=== PATIENT | male | born 1970 | race Caucasian/White ===

== ENCOUNTER → 2020-10-02 19:19 | Outpatient (ROUT) | payer OTHER, SELFPAY ==
[2020-10-02 20:02] LABS: Prostate Specific Antigen Scrn 2.37 ng/mL (0.1-4.0)
== END ==
PROVIDERS: Visit Provider Internal Medicine
DX: Z12.5 Encounter for screening for malignant neoplasm of prostate (principal)
CPT/HCPCS: G0103

== ENCOUNTER → 2021-11-12 11:52 | Outpatient (CLI) | payer OTHER, SELFPAY ==
--- NOTE | 2021-11-12 | DI.MRI.S_ITS ---
PROCEDURE: MR HEAD/BRAIN WO/W CON INDICATIONS: dizziness and giddiness TECHNIQUE: Noncontrast axial T1 spin echo, axial T2 fast spin echo, sagittal and axial FLAIR, coronal T2 fast spin echo, axial gradient echo, axial diffusion and ADC through the brain. After the administration of contrast, axial and coronal 3D VIBE or T1 spin echo with fat saturation through the brain. COMPARISON: None. FINDINGS: Image quality: Excellent. CSF Spaces: Basal cisterns are patent. No extra-axial fluid collections. Ventricles are normal in size and shape. Brain: Incidental small left frontal developmental venous anomaly. No adjacent brain parenchymal signal abnormality. No midline shift. No intracranial bleeds or masses. No abnormal intracranial enhancement. The brainstem appears normal. Diffusion-weighted images demonstrate no acute ischemic insults. No chronic ischemic insults. Normal intravascular flow voids are present. Skull and face: Calvarial marrow is normal in signal. Orbits appear normal. Sinuses: Sinuses and mastoids appear clear. IMPRESSION: Incidental left frontal DVA is of unlikely clinical significance. Otherwise unremarkable MRI of the brain. Dictated by: Mark Montana M.D. on 11/12/2021 at 12:43 Approved by: Mark Montana M.D. on 11/12/2021 at 12:45
== END ==
PROVIDERS: Referring Provider Psychiatry & Neurology Neurology; Visit Provider Psychiatry & Neurology Neurology
DX: R42 Dizziness and giddiness (principal)
CPT/HCPCS: 70553

== ENCOUNTER → 2023-05-06 09:19 | Outpatient (CLI) | payer OTHER, SELFPAY ==
[2023-05-06 11:16] LABS: Add Manual Diff / Slide Review NO; Basophils Absolute Auto 0 /uL (0-100); Basophils Percent Auto 0.7 % (0-2); Eosinophils Absolute Auto 200 /uL (0-450); Eosinophils Percent Auto 4.5 % (2-4); Hematocrit 40.9 % (41-53); Hemoglobin 14.1 g/dL (13.5-17.5); Lymphocytes Absolute Auto 1500 /uL (1100-4500); Lymphocytes Percent Auto 26.8 % (25-40); Mean Corpuscular HGB Conc 34.5 % (30-36); Monocytes Absolute Auto 600 /uL (0-900); Monocytes Percent Auto 10.2 % (3-14); Neutrophils Absolute Auto 3200 /uL (1500-7000); Neutrophils Percent Auto 57.8 % (50-75); Platelet Count 246 X10^3/uL (150-400); Red Cell Distribution Width 12.6 % (11.6-14.8); White Blood Cell Count 5.5 X10^3/uL (4.5-11.0)
[2023-05-06 11:45] LABS: Alanine Aminotransferase 53 IU/L (<50); Albumin 4.5 g/dL (3.5-5.0); Albumin Globulin Ratio 1.6 (1.0-2.8); Alkaline Phosphatase 59 U/L (38-126); Aspartate Aminotransferase 41 IU/L (17-59); Bilirubin Total 0.6 mg/dL (0.2-1.3); Blood Urea Nitrogen 16 mg/dL (9-20); Calcium 9.3 mg/dL (8.4-10.2); Carbon Dioxide 28 mmol/L (22-32); Chloride 103 mmol/L (98-107); Cholesterol 238 mg/dL (140-199); Estimated Glomerular Filt Rate > 60 mL/min (>60); Globulin 2.8 g/dL (1.7-4.1); Glucose 97 mg/dL (70-100); HDL Cholesterol 56 mg/dL (40-60); HEMOLYSIS < 15 (0-50); LDL Cholesterol Calculated 161 mg/dL (<100); Potassium 4.1 mmol/L (3.4-5.1); Sodium 140 mmol/L (137-145); Total Protein 7.3 g/dL (6.3-8.2); Triglycerides 103 mg/dL (35-150)
[2023-05-06 12:06] LABS: Prostate Specific Antigen 2.89 ng/mL (0.10-4.00)
== END ==
PROVIDERS: PCP Family Medicine; Referring Provider Family Medicine; Visit Provider Family Medicine
DX: Z00.00 Encounter for general adult medical examination without abnormal findings (principal); R97.20 Elevated prostate specific antigen [PSA]
CPT/HCPCS: 36415; 80053; 80061; 84153; 85025

== ENCOUNTER 2024-02-10 16:45 | Outpatient (RCR) | payer OTHER, SELFPAY ==
--- NOTE | 2023-11-04 12:45 | PT.OPPOC ---
Physical, Occupational & Speech Therapy At [facility] Current Diagnoses Unsteadiness on feet (11/04/23) Dizziness and giddiness (11/04/23) Visit Care Team Role Provider Type Cliff Cano DO Family Provider Physician Primary Care Provider Specialty: Family Practice Address: [address] [place] [address], [facility] Email: [email or web address] Cristi Garza MD Attending Provider Non-Staff Referring Provider Specialty: Psychiatry Address: [address] [place] [address], [address], [place], [address] Email: Plan Of Care PT-OP-T Assessment and Plan Start: 11/04/23 17:51 Freq: Status: Active Protocol: Document 11/04/23 12:00 DCW (Rec: 11/05/23 09:36 DCW [id number]) Physical Therapy Assessment Rehab Potential Rehabilitation Potential Fair Evaluation Complexity Number of Personal Factors/Comorbidities 3 or More Number of Body Systems Impaired 4 or More Clinical Presentation at Evaluation Unstable Impairments Impairments Activity Tolerance,Balance, Functional Activities, Functional Mobility,Gait, Vestibular Goals Three Impairment Severe sway in CTSIB positions III, V, and Plastics Fitter Goal (LTG) Pt to demonstrate at worst moderate sway (ankle/knee strategies) during all positions of the CTSIB to demonstrate improved functional balance. LTG Duration 02/02/24 Two Impairment Pt unable to make it through four days of work straight without a significant increased in symptoms of fatigue, nausea, and instability Plastics Fitter Goal (LTG) Pt to report ability to get through a full week of work without an increase in symptoms LTG Duration 02/02/24 One Impairment Pt does not have an appropriate home exercise program Short Term Goal (STG) Pt to be independent and compliant with an appropriate HEP STG Duration 12/03/23 Assessment Summary Assessment Pt presents with signs and symptoms largely consistent with diagnosis of likely PPPD. Unfortunately, no possible testing at this point is known to DDx PPPD vs Vestibular migraine. With PPPD, vestibular rehab is typically moderately successful with decreasing pt symptoms and helping to return to a relatively normal functional level. Pt's biggest complaints are increased sensitivity to visual motion, imbalance, retro LOB, easily fatigued/ nauseated with activity, and cognitive fog. Should benefit somewhat with vestibular rehab focusing on adaptation/ habituation exercises, VOR retraining, DVA, and static/ dynamic balances. Physical Therapy Plan Frequency and Duration Frequency of Treatment 2x/Week Plan of Care Start Date 11/04/23 Plan of Care End Date 02/02/24 Therapeutic Interventions Therapeutic Interventions Balance Training,Coordination Training,Gait Training,Home Exercise Program,Manual Therapy,Neuromuscular Re- education,Patient/Caregiver Education,Self-Care/Home Management,Soft Tissue Mobilization,Therapeutic Activities,Therapeutic Exercises,Vestibular Rehabilitation Next Visit Focus/Plan Next Note Type Treatment Note Next Visit Plan VOR, vestibular habituation/ adaptation, NMR Plan of Care Dates Plan of Care Start Date 11/04/23 Plan of Care End Date 02/02/24 Electronically Signed by: Enio Garcia, PT 11/05/23 0936 If you are in agreement with this Plan of Care, please return a signed and dated copy. I have reviewed this Plan of Care and certify that the skilled therapy services above are required to meet the patient?s needs. Physician Signature Date Printed Name and Credentials Clinical Instructor Signature Printed Name and Credentials
--- NOTE | 2023-11-04 12:45 | PT.OIE ---
Current Diagnoses Unsteadiness on feet (11/04/23) Dizziness and giddiness (11/04/23) Past Medical History (Last Updated 05/03/23 @ 20:56 by Brandie Mcdonald) Balance disorder Family history of heart disease High frequency hearing loss Wears glasses Well adult exam Past Surgical History (Last Updated 05/03/23 @ 20:56 by Brandie Mcdonald) Anesthesia Status post medial meniscectomy of right knee (~02/2021) Visit Care Team Role Provider Type Cliff Cano DO Family Provider Physician Primary Care Provider Specialty: Family Practice Address: [address] [place] [address], [facility] Email: [email or web address] Cristi Garza MD Attending Provider Non-Staff Referring Provider Specialty: Psychiatry Address: [address] [place] [address], [address], [facility] Email: Physical Therapy Initial Evaluation PT-OP-A Visit Information Start: 11/04/23 17:51 Freq: Status: Active Protocol: Document 11/04/23 12:00 DCW (Rec: 11/04/23 18:02 DCW [id number]) Out-Patient Physical Therapy Visit Information Visit Information Visit Type Initial Evaluation Visit Start Time 12:00 Visit Stop Time 12:45 Visit Number 1 Number of BEDSPREAD FOLDER Visits 0 Evaluation Information Evaluation Date 11/04/23 PT-OP-B Current Condition Start: 11/04/23 17:51 Freq: Status: Active Protocol: Document 11/04/23 12:00 DCW (Rec: 11/04/23 18:02 DC [id number]) Current Condition History of Current Condition Onset Date March 2019 Current Complaints Postural Instability History of Current Condition Pt is a 53 year old male complaining of a four year history of spontaneous imbalance. Notes he woke up in March 2019 and couldn't stand , just kept falling over and was instantly nauseous. Pt reports symptoms have been pretty much constant, but symptoms are much worse with fatigue, head movements, increased visual input ( shopping, driving) or on swings. Admits he has been very frustrated and it is impacting his personality. He is much more short-tempered and angry when symptoms are worse. Has made drastic changes in his life to try to improve functional participation in life. Notes he has to spread out outings to not get overwhelmed, if he knows he has plans on Thursday , he can't do anything on the days leading up to it, or else he will miss his plans because he's so symptomatic or fatigued. Has recently changed medications, which seem to help decrease some symptoms. Does often lose his balance, typically able to catch himself with a step or using his core for stability. Treatment Goals Patient/Caregiver Goals Improve functional tolerance to activity, decrease loss of balance PT-OP-C Subjective Start: 11/04/23 17:51 Freq: Status: Active Protocol: Document 11/04/23 12:00 DCW (Rec: 11/04/23 18:02 DCW [id number]) OP-PT Subjective Patient Comments Patient Comments The current guess is PPPD. Patient Questionnaires Dizziness Handicap Inventory DHI Score 60% PT-OP-O Vestibular Start: 11/04/23 17:51 Freq: Status: Active Protocol: Document 11/04/23 12:00 DCW (Rec: 11/04/23 18:06 DCW [id number]) Vestibular Assessment Auditory Tests Santos Test Lateralizes right Rinne Test Negative Air Conduction Results Right Greater Visual Testing Smooth Pursuits Horizontal WNL Smooth Pursuits Vertical WNL Saccades Horizontal WNL Saccades Vertical WNL Heave Test Positive Bilateral Thrust Head Positive Bilateral Convergence Test WNL DVA (Line Degradation) 5 Vestibular Function Tests Fukuda Test 50? right turn CTSIB Position 1 Mild Sway CTSIB Position 2 Moderate Sway CTSIB Position 3 Severe Sway CTSIB Position 4 Moderate Sway CTSIB Position 5 Severe Sway CTSIB Position 6 Severe Sway PT-OP-Q Treatments Start: 11/04/23 17:51 Freq: Status: Active Protocol: Document 11/04/23 12:00 DCW (Rec: 11/04/23 18:06 DCW [id number]) Neuro Re-Education Treatment Vestibular Rehabilitation X1 Viewing Details Static target, head turns Distance From Target Arm's length Speed as tolerated Position Seated VOR Retraining Details Target and head moving together Distance From Target Arm's length Speed as tolerated Position Seated PT-OP-T Assessment and Plan Start: 11/04/23 17:51 Freq: Status: Active Protocol: Document 11/04/23 12:00 DCW (Rec: 11/05/23 09:36 [facility] [id number]) Physical Therapy Assessment Rehab Potential Rehabilitation Potential Fair Evaluation Complexity Number of Personal Factors/Comorbidities 3 or More Number of Body Systems Impaired 4 or More Clinical Presentation at Evaluation Unstable Impairments Impairments Activity Tolerance,Balance, Functional Activities, Functional Mobility,Gait, Vestibular Goals Three Impairment Severe sway in CTSIB positions III, V, and Prison Goal (LTG) Pt to demonstrate at worst moderate sway (ankle/knee strategies) during all positions of the CTSIB to demonstrate improved functional balance. LTG Duration 02/02/24 Two Impairment Pt unable to make it through four days of work straight without a significant increased in symptoms of fatigue, nausea, and instability Prison Goal (LTG) Pt to report ability to get through a full week of work without an increase in symptoms LTG Duration 02/02/24 One Impairment Pt does not have an appropriate home exercise program Short Term Goal (STG) Pt to be independent and compliant with an appropriate HEP STG Duration 12/03/23 Assessment Summary Assessment Pt presents with signs and symptoms largely consistent with diagnosis of likely PPPD. Unfortunately, no possible testing at this point is known to DDx PPPD vs Vestibular migraine. With PPPD, vestibular rehab is typically moderately successful with decreasing pt symptoms and helping to return to a relatively normal functional level. Pt's biggest complaints are increased sensitivity to visual motion, imbalance, retro LOB, easily fatigued/ nauseated with activity, and cognitive fog. Should benefit somewhat with vestibular rehab focusing on adaptation/ habituation exercises, VOR retraining, DVA, and static/ dynamic balances. Physical Therapy Plan Frequency and Duration Frequency of Treatment 2x/Week Plan of Care Start Date 11/04/23 Plan of Care End Date 02/02/24 Therapeutic Interventions Therapeutic Interventions Balance Training,Coordination Training,Gait Training,Home Exercise Program,Manual Therapy,Neuromuscular Re- education,Patient/Caregiver Education,Self-Care/Home Management,Soft Tissue Mobilization,Therapeutic Activities,Therapeutic Exercises,Vestibular Rehabilitation Next Visit Focus/Plan Next Note Type Treatment Note Next Visit Plan VOR, vestibular habituation/ adaptation, NMR
--- NOTE | 2023-11-11 17:36 | PT.OTN ---
Current Diagnoses Unsteadiness on feet (11/11/23) Dizziness and giddiness (11/11/23) Physical Therapy Treatment Note PT-OP-A Visit Information Start: 11/04/23 17:51 Freq: Status: Active Protocol: Document 11/11/23 16:45 DCW (Rec: 11/11/23 17:36 DCW [id number]) Out-Patient Physical Therapy Visit Information Visit Information Visit Type Treatment Note Visit Start Time 16:45 Visit Stop Time 17:30 Visit Number 2 Number of INTERIOR DESIGN CONSULTANT Visits 0 Evaluation Information Evaluation Date 11/04/23 PT-OP-B Current Condition Start: 11/04/23 17:51 Freq: Status: Active Protocol: Document 11/04/23 12:00 DCW (Rec: 11/04/23 18:02 DCW [id number]) Current Condition History of Current Condition Onset Date March 2019 Current Complaints Postural Instability History of Current Condition Pt is a 53 year old male complaining of a four year history of spontaneous imbalance. Notes he woke up in March 2019 and couldn't stand , just kept falling over and was instantly nauseous. Pt reports symptoms have been pretty much constant, but symptoms are much worse with fatigue, head movements, increased visual input ( shopping, driving) or on swings. Admits he has been very frustrated and it is impacting his personality. He is much more short-tempered and angry when symptoms are worse. Has made drastic changes in his life to try to improve functional participation in life. Notes he has to spread out outings to not get overwhelmed, if he knows he has plans on Thursday , he can't do anything on the days leading up to it, or else he will miss his plans because he's so symptomatic or fatigued. Has recently changed medications, which seem to help decrease some symptoms. Does often lose his balance, typically able to catch himself with a step or using his core for stability. Treatment Goals Patient/Caregiver Goals Improve functional tolerance to activity, decrease loss of balance PT-OP-C Subjective Start: 11/04/23 17:51 Freq: Status: Active Protocol: Document 11/11/23 16:45 DCW (Rec: 11/11/23 17:36 DCW [id number]) OP-PT Subjective Patient Comments Patient Comments Unable to tolerate HEP 2x/day, now performing 1x/day in the evening. PT-OP-O Vestibular Start: 11/04/23 17:51 Freq: Status: Active Protocol: Document 11/04/23 12:00 DCW (Rec: 11/04/23 18:06 DCW [id number]) Vestibular Assessment Auditory Tests Santos Test Lateralizes right Rinne Test Negative Air Conduction Results Right Greater Visual Testing Smooth Pursuits Horizontal WNL Smooth Pursuits Vertical WNL Saccades Horizontal WNL Saccades Vertical WNL Heave Test Positive Bilateral Thrust Head Positive Bilateral Convergence Test WNL DVA (Line Degradation) 5 Vestibular Function Tests Fukuda Test 50? right turn CTSIB Position 1 Mild Sway CTSIB Position 2 Moderate Sway CTSIB Position 3 Severe Sway CTSIB Position 4 Moderate Sway CTSIB Position 5 Severe Sway CTSIB Position 6 Severe Sway PT-OP-Q Treatments Start: 11/04/23 17:51 Freq: Status: Active Protocol: Document 11/11/23 16:45 DCW (Rec: 11/11/23 17:36 DCW [id number]) Gym Equipment Shuttle Rebound Chain Reading Exercise Details Chain reading bouncing Shuttle Balance Red Details WBOS, Staggered, Lateral Neuro Re-Education Treatment Balance Activities Tandem Ambulation Details Tandem Ambulation Comments Fwd, Bkwd Tandem stance Details Tandem stance Equipment // bars Foam Details EO/EC Surface AirEx Vestibular Rehabilitation Corrective Saccades Details Eyes, then head Distance From Target Arm's length Speed as Tolerated Position Seated X2 Viewing Details Target and head in opposite directions Distance From Target Arm's length Speed as tolerated Position Seated PT-OP-T Assessment and Plan Start: 11/04/23 17:51 Freq: Status: Active Protocol: Document 11/11/23 16:45 DCW (Rec: 11/11/23 17:36 DCW [id number]) Physical Therapy Assessment Impairments Impairments Activity Tolerance,Balance, Functional Activities, Functional Mobility,Gait, Vestibular Goals Three Impairment Severe sway in CTSIB positions III, V, and Botanical Technical Officer Goal (LTG) Pt to demonstrate at worst moderate sway (ankle/knee strategies) during all positions of the CTSIB to demonstrate improved functional balance. LTG Duration 02/02/24 Two Impairment Pt unable to make it through four days of work straight without a significant increased in symptoms of fatigue, nausea, and instability Alf Goal (LTG) Pt to report ability to get through a full week of work without an increase in symptoms LTG Duration 02/02/24 One Impairment Pt does not have an appropriate home exercise program Short Term Goal (STG) Pt to be independent and compliant with an appropriate HEP STG Duration 12/03/23 Assessment Summary Assessment Good tolerance to most balance challenges and corrective saccades. Pt only able to tolerate very brief attempts of X2 exercise. Pt feeling mild nausea pretty much constantly. Instructed to add saccades and X2 to HEP, but space out exercises to limit symptoms to mild. Physical Therapy Plan Frequency and Duration Frequency of Treatment 2x/Week Plan of Care Start Date 11/04/23 Plan of Care End Date 02/02/24 Therapeutic Interventions Therapeutic Interventions Balance Training,Coordination Training,Gait Training,Home Exercise Program,Manual Therapy,Neuromuscular Re- education,Patient/Caregiver Education,Self-Care/Home Management,Soft Tissue Mobilization,Therapeutic Activities,Therapeutic Exercises,Vestibular Rehabilitation Next Visit Focus/Plan Next Note Type Treatment Note Next Visit Plan VOR, vestibular habituation/ adaptation, NMR
--- NOTE | 2023-12-07 17:38 | PT.OTN ---
Current Diagnoses Unsteadiness on feet (12/07/23) Dizziness and giddiness (12/07/23) Physical Therapy Treatment Note PT-OP-A Visit Information Start: 11/04/23 17:51 Freq: Status: Active Protocol: Document 12/07/23 16:45 DCW (Rec: 12/07/23 17:37 DCW [id number]) Out-Patient Physical Therapy Visit Information Visit Information Visit Type Treatment Note Visit Start Time 16:45 Visit Stop Time 17:30 Visit Number 3 Number of NOVELTY MAKER Visits 0 Evaluation Information Evaluation Date 11/04/23 PT-OP-B Current Condition Start: 11/04/23 17:51 Freq: Status: Active Protocol: Document 11/04/23 12:00 DCW (Rec: 11/04/23 18:02 DCW [id number]) Current Condition History of Current Condition Onset Date March 2019 Current Complaints Postural Instability History of Current Condition Pt is a 53 year old male complaining of a four year history of spontaneous imbalance. Notes he woke up in March 2019 and couldn't stand , just kept falling over and was instantly nauseous. Pt reports symptoms have been pretty much constant, but symptoms are much worse with fatigue, head movements, increased visual input ( shopping, driving) or on swings. Admits he has been very frustrated and it is impacting his personality. He is much more short-tempered and angry when symptoms are worse. Has made drastic changes in his life to try to improve functional participation in life. Notes he has to spread out outings to not get overwhelmed, if he knows he has plans on Thursday , he can't do anything on the days leading up to it, or else he will miss his plans because he's so symptomatic or fatigued. Has recently changed medications, which seem to help decrease some symptoms. Does often lose his balance, typically able to catch himself with a step or using his core for stability. Treatment Goals Patient/Caregiver Goals Improve functional tolerance to activity, decrease loss of balance PT-OP-C Subjective Start: 11/04/23 17:51 Freq: Status: Active Protocol: Document 12/07/23 16:45 DCW (Rec: 12/07/23 17:37 DCW [id number]) OP-PT Subjective Patient Comments Patient Comments No real changes overall. Has been consistent 1x/day with HEP, feels it afterward fpr 30-45 minutes. PT-OP-O Vestibular Start: 11/04/23 17:51 Freq: Status: Active Protocol: Document 11/04/23 12:00 DCW (Rec: 11/04/23 18:06 DCW [id number]) Vestibular Assessment Auditory Tests Santos Test Lateralizes right Rinne Test Negative Air Conduction Results Right Greater Visual Testing Smooth Pursuits Horizontal WNL Smooth Pursuits Vertical WNL Saccades Horizontal WNL Saccades Vertical WNL Heave Test Positive Bilateral Thrust Head Positive Bilateral Convergence Test WNL DVA (Line Degradation) 5 Vestibular Function Tests Fukuda Test 50? right turn CTSIB Position 1 Mild Sway CTSIB Position 2 Moderate Sway CTSIB Position 3 Severe Sway CTSIB Position 4 Moderate Sway CTSIB Position 5 Severe Sway CTSIB Position 6 Severe Sway PT-OP-Q Treatments Start: 11/04/23 17:51 Freq: Status: Active Protocol: Document 12/07/23 16:45 DCW (Rec: 12/07/23 17:37 DCW [id number]) Gym Equipment Shuttle Balance Red Details WBOS, Staggered, Lateral Neuro Re-Education Treatment Balance Activities Hurdles Details Hurdles /c Foam Dynamic Gait Comments Head turns (100 bpm) Retro Ambulation Tandem Ambulation PT-OP-T Assessment and Plan Start: 11/04/23 17:51 Freq: Status: Active Protocol: Document 12/07/23 16:45 DCW (Rec: 12/07/23 17:37 DCW [id number]) Physical Therapy Assessment Impairments Impairments Activity Tolerance,Balance, Functional Activities, Functional Mobility,Gait, Vestibular Goals Three Impairment Severe sway in CTSIB positions III, V, and Detention Goal (LTG) Pt to demonstrate at worst moderate sway (ankle/knee strategies) during all positions of the CTSIB to demonstrate improved functional balance. LTG Duration 02/02/24 Two Impairment Pt unable to make it through four days of work straight without a significant increased in symptoms of fatigue, nausea, and instability Chief Marketing Officer Goal (LTG) Pt to report ability to get through a full week of work without an increase in symptoms LTG Duration 02/02/24 One Impairment Pt does not have an appropriate home exercise program Short Term Goal (STG) Pt to be independent and compliant with an appropriate HEP STG Duration 12/03/23 Assessment Summary Assessment Significant challenge attempting to ambulate with horizontal head turns today. Nearly constant LOB and reaching out for martinez. Much more visible instability than is typically seen with PPPD. Pt instructed to increase challenge of HEP if they are becoming easier. Physical Therapy Plan Frequency and Duration Frequency of Treatment 2x/Week Plan of Care Start Date 11/04/23 Plan of Care End Date 02/02/24 Therapeutic Interventions Therapeutic Interventions Balance Training,Coordination Training,Gait Training,Home Exercise Program,Manual Therapy,Neuromuscular Re- education,Patient/Caregiver Education,Self-Care/Home Management,Soft Tissue Mobilization,Therapeutic Activities,Therapeutic Exercises,Vestibular Rehabilitation Next Visit Focus/Plan Next Note Type Treatment Note Next Visit Plan VOR, vestibular habituation/ adaptation, NMR
--- NOTE | 2023-12-28 17:34 | PT.OTN ---
Current Diagnoses Unsteadiness on feet (12/28/23) Dizziness and giddiness (12/28/23) Physical Therapy Treatment Note PT-OP-A Visit Information Start: 11/04/23 17:51 Freq: Status: Active Protocol: Document 12/28/23 16:45 DCW (Rec: 12/28/23 17:33 DCW [id number]) Out-Patient Physical Therapy Visit Information Visit Information Visit Type Treatment Note Visit Start Time 16:45 Visit Stop Time 17:30 Visit Number 4 Number of MEDICAL CENTER MANAGER Visits 0 Evaluation Information Evaluation Date 11/04/23 PT-OP-B Current Condition Start: 11/04/23 17:51 Freq: Status: Active Protocol: Document 11/04/23 12:00 DCW (Rec: 11/04/23 18:02 DCW [id number]) Current Condition History of Current Condition Onset Date March 2019 Current Complaints Postural Instability History of Current Condition Pt is a 53 year old male complaining of a four year history of spontaneous imbalance. Notes he woke up in March 2019 and couldn't stand , just kept falling over and was instantly nauseous. Pt reports symptoms have been pretty much constant, but symptoms are much worse with fatigue, head movements, increased visual input ( shopping, driving) or on swings. Admits he has been very frustrated and it is impacting his personality. He is much more short-tempered and angry when symptoms are worse. Has made drastic changes in his life to try to improve functional participation in life. Notes he has to spread out outings to not get overwhelmed, if he knows he has plans on Thursday , he can't do anything on the days leading up to it, or else he will miss his plans because he's so symptomatic or fatigued. Has recently changed medications, which seem to help decrease some symptoms. Does often lose his balance, typically able to catch himself with a step or using his core for stability. Treatment Goals Patient/Caregiver Goals Improve functional tolerance to activity, decrease loss of balance PT-OP-C Subjective Start: 11/04/23 17:51 Freq: Status: Active Protocol: Document 12/28/23 16:45 DCW (Rec: 12/28/23 17:33 DCW [id number]) OP-PT Subjective Patient Comments Patient Comments Kind of messed up for a few days after last session. Does admit he feels there have been some improvements, able to get up and walk through the grocery store without feeling wiped out the rest of the day PT-OP-O Vestibular Start: 11/04/23 17:51 Freq: Status: Active Protocol: Document 11/04/23 12:00 DCW (Rec: 11/04/23 18:06 DCW [id number]) Vestibular Assessment Auditory Tests Santos Test Lateralizes right Rinne Test Negative Air Conduction Results Right Greater Visual Testing Smooth Pursuits Horizontal WNL Smooth Pursuits Vertical WNL Saccades Horizontal WNL Saccades Vertical WNL Heave Test Positive Bilateral Thrust Head Positive Bilateral Convergence Test WNL DVA (Line Degradation) 5 Vestibular Function Tests Fukuda Test 50? right turn CTSIB Position 1 Mild Sway CTSIB Position 2 Moderate Sway CTSIB Position 3 Severe Sway CTSIB Position 4 Moderate Sway CTSIB Position 5 Severe Sway CTSIB Position 6 Severe Sway PT-OP-Q Treatments Start: 11/04/23 17:51 Freq: Status: Active Protocol: Document 12/28/23 16:45 DCW (Rec: 12/28/23 17:33 DCW [id number]) Gym Equipment Shuttle Balance Red Details WBOS, Staggered, Lateral Neuro Re-Education Treatment Balance Activities SLS Details SLS Comments Head Turns Dynamic Gait Comments Head turns (100 bpm) Retro Ambulation Tandem Ambulation Foam Details EO/EC, head turns Surface AirEx PT-OP-T Assessment and Plan Start: 11/04/23 17:51 Freq: Status: Active Protocol: Document 12/28/23 16:45 DCW (Rec: 12/28/23 17:33 CTW [id number]) Physical Therapy Assessment Impairments Impairments Activity Tolerance,Balance, Functional Activities, Functional Mobility,Gait, Vestibular Goals Three Impairment Severe sway in CTSIB positions III, V, and Research Librarian Goal (LTG) Pt to demonstrate at worst moderate sway (ankle/knee strategies) during all positions of the CTSIB to demonstrate improved functional balance. LTG Duration 02/02/24 Two Impairment Pt unable to make it through four days of work straight without a significant increased in symptoms of fatigue, nausea, and instability Correction Goal (LTG) Pt to report ability to get through a full week of work without an increase in symptoms LTG Duration 02/02/24 One Impairment Pt does not have an appropriate home exercise program Short Term Goal (STG) Pt to be independent and compliant with an appropriate HEP STG Duration 12/03/23 Assessment Summary Assessment Horizontal head turns improved today, added diagonals, which resulted in multiple self- corrected LOB. Pt does appear to be showing improved tolerance to vestibular challenges. Compliant with HEP Physical Therapy Plan Frequency and Duration Frequency of Treatment 2x/Week Plan of Care Start Date 11/04/23 Plan of Care End Date 02/02/24 Therapeutic Interventions Therapeutic Interventions Balance Training,Coordination Training,Gait Training,Home Exercise Program,Manual Therapy,Neuromuscular Re- education,Patient/Caregiver Education,Self-Care/Home Management,Soft Tissue Mobilization,Therapeutic Activities,Therapeutic Exercises,Vestibular Rehabilitation Next Visit Focus/Plan Next Note Type Treatment Note Next Visit Plan VOR, vestibular habituation/ adaptation, NMR
--- NOTE | 2024-01-11 17:35 | PT.OTN ---
Current Diagnoses Unsteadiness on feet (01/11/24) Dizziness and giddiness (01/11/24) Physical Therapy Treatment Note PT-OP-A Visit Information Start: 11/04/23 17:51 Freq: Status: Active Protocol: Document 01/11/24 16:45 DCW (Rec: 01/11/24 17:35 DCW [id number]) Out-Patient Physical Therapy Visit Information Visit Information Visit Type Treatment Note Visit Start Time 16:45 Visit Stop Time 17:30 Visit Number 5 Number of BUILD TECHNICIAN Visits 0 Evaluation Information Evaluation Date 11/04/23 PT-OP-B Current Condition Start: 11/04/23 17:51 Freq: Status: Active Protocol: Document 11/04/23 12:00 DCW (Rec: 11/04/23 18:02 DCW [id number]) Current Condition History of Current Condition Onset Date March 2019 Current Complaints Postural Instability History of Current Condition Pt is a 53 year old male complaining of a four year history of spontaneous imbalance. Notes he woke up in March 2019 and couldn't stand , just kept falling over and was instantly nauseous. Pt reports symptoms have been pretty much constant, but symptoms are much worse with fatigue, head movements, increased visual input ( shopping, driving) or on swings. Admits he has been very frustrated and it is impacting his personality. He is much more short-tempered and angry when symptoms are worse. Has made drastic changes in his life to try to improve functional participation in life. Notes he has to spread out outings to not get overwhelmed, if he knows he has plans on Thursday , he can't do anything on the days leading up to it, or else he will miss his plans because he's so symptomatic or fatigued. Has recently changed medications, which seem to help decrease some symptoms. Does often lose his balance, typically able to catch himself with a step or using his core for stability. Treatment Goals Patient/Caregiver Goals Improve functional tolerance to activity, decrease loss of balance PT-OP-C Subjective Start: 11/04/23 17:51 Freq: Status: Active Protocol: Document 01/11/24 16:45 DCW (Rec: 01/11/24 17:35 DCW [id number]) OP-PT Subjective Patient Comments Patient Comments Pt has been feeling quite a bit better. Notes that a few weeks ago, he started a medication that is supposed to help with vertiginous migraine symptoms, which is a once monthly injection. Unsure if it has been helpful at this time. PT-OP-O Vestibular Start: 11/04/23 17:51 Freq: Status: Active Protocol: Document 11/04/23 12:00 DCW (Rec: 11/04/23 18:06 DCW [id number]) Vestibular Assessment Auditory Tests Santos Test Lateralizes right Rinne Test Negative Air Conduction Results Right Greater Visual Testing Smooth Pursuits Horizontal WNL Smooth Pursuits Vertical WNL Saccades Horizontal WNL Saccades Vertical WNL Heave Test Positive Bilateral Thrust Head Positive Bilateral Convergence Test WNL DVA (Line Degradation) 5 Vestibular Function Tests Fukuda Test 50? right turn CTSIB Position 1 Mild Sway CTSIB Position 2 Moderate Sway CTSIB Position 3 Severe Sway CTSIB Position 4 Moderate Sway CTSIB Position 5 Severe Sway CTSIB Position 6 Severe Sway PT-OP-Q Treatments Start: 11/04/23 17:51 Freq: Status: Active Protocol: Document 01/11/24 16:45 DCW (Rec: 01/11/24 17:35 DCW [id number]) Gym Equipment Shuttle Balance Red Details WBOS, Staggered, Lateral Neuro Re-Education Treatment Balance Activities BOSU Details DL BOSU stance Comments EO/EC SLS Details SLS Surface AirEx Dynamic Gait Comments Retro head turns (100 bpm) Tandem Ambulation Fwd/Retro PT-OP-T Assessment and Plan Start: 11/04/23 17:51 Freq: Status: Active Protocol: Document 01/11/24 16:45 DCW (Rec: 01/11/24 17:35 DCW [id number]) Physical Therapy Assessment Impairments Impairments Activity Tolerance,Balance, Functional Activities, Functional Mobility,Gait, Vestibular Goals Three Impairment Severe sway in CTSIB positions III, V, and Alf Goal (LTG) Pt to demonstrate at worst moderate sway (ankle/knee strategies) during all positions of the CTSIB to demonstrate improved functional balance. LTG Duration 02/02/24 Two Impairment Pt unable to make it through four days of work straight without a significant increased in symptoms of fatigue, nausea, and instability Documentation Writer Goal (LTG) Pt to report ability to get through a full week of work without an increase in symptoms LTG Duration 02/02/24 One Impairment Pt does not have an appropriate home exercise program Short Term Goal (STG) Pt to be independent and compliant with an appropriate HEP STG Duration 12/03/23 Assessment Summary Assessment Pt reports that following today's session, he largely felt asymptomatic. No longer experiencing much of the cognitive fog. Feels like there is a slight instability that he can feel, but I can fight through it. Would like another follow-up in 3-4 weeks to determine if there has been a continuing decline in his symptoms. Physical Therapy Plan Frequency and Duration Frequency of Treatment 2x/Week Plan of Care Start Date 11/04/23 Plan of Care End Date 02/02/24 Therapeutic Interventions Therapeutic Interventions Balance Training,Coordination Training,Gait Training,Home Exercise Program,Manual Therapy,Neuromuscular Re- education,Patient/Caregiver Education,Self-Care/Home Management,Soft Tissue Mobilization,Therapeutic Activities,Therapeutic Exercises,Vestibular Rehabilitation Next Visit Focus/Plan Next Note Type Progress Note Next Visit Plan VOR, vestibular habituation/ adaptation, NMR
--- NOTE | 2024-02-10 17:46 | PT.OTN ---
Current Diagnoses Unsteadiness on feet (02/10/24) Dizziness and giddiness (02/10/24) Physical Therapy Treatment Note PT-OP-A Visit Information Start: 11/04/23 17:51 Freq: Status: Active Protocol: Document 02/10/24 16:46 DCW (Rec: 02/10/24 17:45 DCW [id number]) Out-Patient Physical Therapy Visit Information Visit Information Visit Type Discharge Summary Visit Start Time 16:45 Visit Stop Time 17:30 Visit Number 6 Number of LIFT SLAB OPERATOR Visits 0 Evaluation Information Evaluation Date 11/04/23 PT-OP-B Current Condition Start: 11/04/23 17:51 Freq: Status: Active Protocol: Document 11/04/23 12:00 DCW (Rec: 11/04/23 18:02 DCW [id number]) Current Condition History of Current Condition Onset Date March 2019 Current Complaints Postural Instability History of Current Condition Pt is a 53 year old male complaining of a four year history of spontaneous imbalance. Notes he woke up in March 2019 and couldn't stand , just kept falling over and was instantly nauseous. Pt reports symptoms have been pretty much constant, but symptoms are much worse with fatigue, head movements, increased visual input ( shopping, driving) or on swings. Admits he has been very frustrated and it is impacting his personality. He is much more short-tempered and angry when symptoms are worse. Has made drastic changes in his life to try to improve functional participation in life. Notes he has to spread out outings to not get overwhelmed, if he knows he has plans on Thursday , he can't do anything on the days leading up to it, or else he will miss his plans because he's so symptomatic or fatigued. Has recently changed medications, which seem to help decrease some symptoms. Does often lose his balance, typically able to catch himself with a step or using his core for stability. Treatment Goals Patient/Caregiver Goals Improve functional tolerance to activity, decrease loss of balance PT-OP-C Subjective Start: 11/04/23 17:51 Freq: Status: Active Protocol: Document 02/10/24 16:46 DCW (Rec: 02/10/24 17:45 DCW [id number]) OP-PT Subjective Patient Comments Patient Comments Last few weeks I've really amped up my activity level,so I've felt it more. I'm not needing the rest breaks to recover any more, I'm able to push through. PT-OP-O Vestibular Start: 11/04/23 17:51 Freq: Status: Active Protocol: Document 11/04/23 12:00 DCW (Rec: 11/04/23 18:06 DCW [id number]) Vestibular Assessment Auditory Tests Santos Test Lateralizes right Rinne Test Negative Air Conduction Results Right Greater Visual Testing Smooth Pursuits Horizontal WNL Smooth Pursuits Vertical WNL Saccades Horizontal WNL Saccades Vertical WNL Heave Test Positive Bilateral Thrust Head Positive Bilateral Convergence Test WNL DVA (Line Degradation) 5 Vestibular Function Tests Fukuda Test 50? right turn CTSIB Position 1 Mild Sway CTSIB Position 2 Moderate Sway CTSIB Position 3 Severe Sway CTSIB Position 4 Moderate Sway CTSIB Position 5 Severe Sway CTSIB Position 6 Severe Sway PT-OP-Q Treatments Start: 11/04/23 17:51 Freq: Status: Active Protocol: Document 02/10/24 16:46 DCW (Rec: 02/10/24 17:45 DCW [id number]) Gym Equipment Shuttle Balance Red Details WBOS, Staggered, Lateral Neuro Re-Education Treatment Balance Activities BOSU Details SLS, DLS Surface SLS - Blue BOSU, DL - Black BOSU Dynamic Gait Comments Head turns (120 bpm) Retro Ambulation Tandem Ambulation PT-OP-T Assessment and Plan Start: 11/04/23 17:51 Freq: Status: Active Protocol: Document 02/10/24 16:46 DCW (Rec: 02/10/24 17:45 DCW [id number]) Physical Therapy Assessment Impairments Impairments Activity Tolerance,Balance, Functional Activities, Functional Mobility,Gait, Vestibular Goals Three Impairment Severe sway in CTSIB positions III, V, and Care Home Goal (LTG) Pt to demonstrate at worst moderate sway (ankle/knee strategies) during all positions of the CTSIB to demonstrate improved functional balance. LTG Duration Met Two Impairment Pt unable to make it through four days of work straight without a significant increased in symptoms of fatigue, nausea, and instability Care Home Goal (LTG) Pt to report ability to get through a full week of work without an increase in symptoms LTG Duration 02/02/24 One Impairment Pt does not have an appropriate home exercise program Short Term Goal (STG) Pt to be independent and compliant with an appropriate HEP STG Duration Met Progress Towards Goals Progress Towards Goals Progressing Toward Goals Assessment Summary Assessment Pt having overall good progress, showing improvement with decreased severity and quicker recovery time, no longer requiring days to rest after going out. Pt independent with HEP, has likely reached the point where he can discharge from skilled therapy in order to progress independently. Pt understands he will require a new referral in [facility] to return to skilled therapy in the future if needed. Physical Therapy Plan Frequency and Duration Frequency of Treatment 1x/Week Plan of Care Start Date 02/10/24 Plan of Care End Date 02/11/24 Therapeutic Interventions Therapeutic Interventions Balance Training,Coordination Training,Gait Training,Home Exercise Program,Manual Therapy,Neuromuscular Re- education,Patient/Caregiver Education,Self-Care/Home Management,Soft Tissue Mobilization,Therapeutic Activities,Therapeutic Exercises,Vestibular Rehabilitation Discharge Physical Therapy Discharge Comments D/C to independent HEP Next Visit Focus/Plan Next Note Type Discharge Summary
--- NOTE | 2024-02-10 17:47 | PT.OPPOC ---
Physical, Occupational & Speech Therapy At [facility] Current Diagnoses Unsteadiness on feet (02/10/24) Dizziness and giddiness (02/10/24) Visit Care Team Role Provider Type Cliff Cano DO Family Provider Physician Primary Care Provider Specialty: Family Practice Address: [address] [place] [address], [facility] Email: [email or web address] Cristi Garza MD Attending Provider Non-Staff Referring Provider Specialty: Psychiatry Address: [address] [place] [address], [address], [place], [address] Email: Plan Of Care PT-OP-T Assessment and Plan Start: 11/04/23 17:51 Freq: Status: Active Protocol: Document 02/10/24 16:46 DCW (Rec: 02/10/24 17:45 DCW [id number]) Physical Therapy Assessment Impairments Impairments Activity Tolerance,Balance, Functional Activities, Functional Mobility,Gait, Vestibular Goals Three Impairment Severe sway in CTSIB positions III, V, and Power System Operator Goal (LTG) Pt to demonstrate at worst moderate sway (ankle/knee strategies) during all positions of the CTSIB to demonstrate improved functional balance. LTG Duration Met Two Impairment Pt unable to make it through four days of work straight without a significant increased in symptoms of fatigue, nausea, and instability Chcf Goal (LTG) Pt to report ability to get through a full week of work without an increase in symptoms LTG Duration 02/02/24 One Impairment Pt does not have an appropriate home exercise program Short Term Goal (STG) Pt to be independent and compliant with an appropriate HEP STG Duration Met Progress Towards Goals Progress Towards Goals Progressing Toward Goals Assessment Summary Assessment Pt having overall good progress, showing improvement with decreased severity and quicker recovery time, no longer requiring days to rest after going out. Pt independent with HEP, has likely reached the point where he can discharge from skilled therapy in order to progress independently. Pt understands he will require a new referral in [facility] to return to skilled therapy in the future if needed. Physical Therapy Plan Frequency and Duration Frequency of Treatment 1x/Week Plan of Care Start Date 02/10/24 Plan of Care End Date 02/11/24 Therapeutic Interventions Therapeutic Interventions Balance Training,Coordination Training,Gait Training,Home Exercise Program,Manual Therapy,Neuromuscular Re- education,Patient/Caregiver Education,Self-Care/Home Management,Soft Tissue Mobilization,Therapeutic Activities,Therapeutic Exercises,Vestibular Rehabilitation Discharge Physical Therapy Discharge Comments D/C to independent HEP Next Visit Focus/Plan Next Note Type Discharge Summary Plan of Care Dates Plan of Care Start Date 02/10/24 Plan of Care End Date 02/11/24 Electronically Signed by: Enio Garcia, PT 02/10/24 [id number] If you are in agreement with this Plan of Care, please return a signed and dated copy. I have reviewed this Plan of Care and certify that the skilled therapy services above are required to meet the patient?s needs. Physician Signature Date Printed Name and Credentials Clinical Instructor Signature Printed Name and Credentials
== END 2024-02-26 12:26 | disposition home or self-care (01) ==
LOC: PHYS 16:45
PROVIDERS: Family Provider Family Medicine; PCP Family Medicine; Referring Provider Psychiatry & Neurology Neurology; Visit Provider Psychiatry & Neurology Neurology
DX: R42 Dizziness and giddiness (principal); R26.81 Unsteadiness on feet
CPT/HCPCS: 97112; 97163

== ENCOUNTER → 2024-05-12 08:36 | Outpatient (CLI) | payer OTHER, SELFPAY ==
[2024-05-12 09:59] LABS: Add Manual Diff / Slide Review NO; Basophils Absolute Auto 0 /uL (0-100); Basophils Percent Auto 0.7 % (0-2); Eosinophils Absolute Auto 300 /uL (0-450); Eosinophils Percent Auto 4.5 % (2-4); Hematocrit 41.7 % (41-53); Hemoglobin 14.3 g/dL (13.5-17.5); Lymphocytes Absolute Auto 1600 /uL (1100-4500); Mean Corpuscular HGB Conc 34.2 % (30-36); Mean Corpuscular Hemoglobin 30.2 PG (26-34); Mean Corpuscular Volume 88.3 fL (80-100); Monocytes Absolute Auto 700 /uL (0-900); Monocytes Percent Auto 10.6 % (3-14); Neutrophils Absolute Auto 3700 /uL (1500-7000); Neutrophils Percent Auto 59.2 % (50-75); Platelet Count 246 X10^3/uL (150-400); Red Blood Cell Count 4.72 X10^6/uL (4.5-5.9); Red Cell Distribution Width 12.8 % (11.6-14.8); White Blood Cell Count 6.3 X10^3/uL (4.5-11.0)
[2024-05-12 11:28] LABS: Alanine Aminotransferase 43 IU/L (<50); Albumin 4.4 g/dL (3.5-5.0); Albumin Globulin Ratio 1.7 (1.0-2.8); Alkaline Phosphatase 60 U/L (38-126); Aspartate Aminotransferase 39 IU/L (17-59); BUN Creatinine Ratio 16.9 (6-22); Bilirubin Total 0.6 mg/dL (0.2-1.3); Blood Urea Nitrogen 14 mg/dL (9-20); Calcium 9.4 mg/dL (8.4-10.2); Carbon Dioxide 27 mmol/L (22-32); Chloride 105 mmol/L (98-107); Cholesterol 270 mg/dL (140-199); Estimated Glomerular Filt Rate > 60 mL/min (>60); Globulin 2.6 g/dL (1.7-4.1); Glucose 103 mg/dL (70-100); HDL Cholesterol 64 mg/dL (40-60); HEMOLYSIS < 15 (0-50); LDL Cholesterol Calculated 171 mg/dL (<100); Sodium 141 mmol/L (137-145); Triglycerides 175 mg/dL (35-150)
[2024-05-12 11:53] LABS: Prostate Specific Antigen 2.02 ng/mL (0.10-4.00)
== END ==
PROVIDERS: Family Provider Family Medicine; PCP Family Medicine; Referring Provider Family Medicine; Visit Provider Family Medicine
DX: Z00.00 Encounter for general adult medical examination without abnormal findings (principal); E78.5 Hyperlipidemia, unspecified; Z82.49 Family history of ischemic heart disease and other diseases of the circulatory system
CPT/HCPCS: 36415; 80053; 80061; 84153; 85025

== ENCOUNTER 2024-07-28 13:12 | Day surgery (SDC) | payer OTHER, SELFPAY ==
[2024-07-28 13:30] VITALS: BP 125/72; PULSE 72; RESP 18; TEMP 36.4; O2SAT 99
--- NOTE | 2024-07-28 13:48 | PM.HP.1 ---
History of Present Illness History of Present Illness Date Patient Seen: 07/28/24 Time Patient Seen: 13:48 Chief complaint: Screening Colonoscopy Narrative: Selvin is a 54-year-old man who is here for colonoscopy. He has never had a colonoscopy. No known family history of colon cancer PFSH Medical History Bronchospasm Strain of piriformis muscle Hyperlipidemia Wears glasses High frequency hearing loss Family history of heart disease Balance disorder Well adult exam Surgical History Anesthesia Status post medial meniscectomy of right knee (~02/2021) Social History Smoking Status: Never smoker alcohol intake: current Meds Home Medications and Allergies Home Medications Medication Instructions Recorded Confirmed Type albuterol sulfate 90 mcg/actuation 1 inh inhalation Q4-6H PRN 04/29/24 07/28/24 Rx aerosol inhaler shortness of breath or wheezing #8.5 grams fremanezumab-vfrm 225 mg/1.5 mL 225 mg SUBCUT QMONTH 04/29/24 07/28/24 History subcutaneous syringe (Ajovy Syringe) Allergies Allergy/AdvReac Type Severity Reaction Status Date / Time No Known Drug Allergies Allergy Verified 07/28/24 13:28 Exam Vital Signs (past 8 hours): - 07/28/24 13:30 Temperature 97.6 F Pulse Rate 72 Respiratory Rate 18 Blood Pressure 125/72 Pulse Oximetry 99 Oxygen Delivery Method Room Air Oxygen Delivery Method Room Air Const General: healthy appearing Resp Effort & Inspection: normal respiratory effort Assessment & Plan Assessment and plan (1) Colon cancer screening: Status: Acute Plan Colonoscopy Time-Based Coding :: [TOTAL MINUTES] spent with patient and on the chart (including review of chart, obtaining history, exam, reviewing outside data, placing orders, documenting exam and treatment plan, and counseling patient) on [DATE].
--- NOTE | 2024-07-28 14:18 | PM.OP.COLON ---
Operative Date/Time/Diagnoses Date of procedure: 07/28/24 Time of procedure: 14:18 Pre-op diagnosis: Colon cancer screening Post-op diagnosis: same Procedure & Clinicians Study performed: Colonoscopy Same procedure as scheduled: Yes Surgeon: Medardo Choi Procedure Notes Procedure in detail: Surgeon: Medardo Choi MD Anesthesia: Hailey Spencer CRNA Procedure: The patient was brought to the endoscopy suite, placed in left lateral decubitus position. The patient was connected to monitoring devices. A time-out was performed. Sedation was administered. Once the patient was adequately sedated, a digital rectal exam was performed and was normal. The scope was then inserted and advanced to the cecum where the appendiceal orifice was identified and photographed. The scope was then slowly withdrawn over greater than 6 minutes. The mucosa was thoroughly inspected. No abnormalities were found. The scope was retroflexed in the rectum. No abnormalities were seen. The scope was straightened and removed. The patient was awakened and brought to recovery. Scope withdrawal time: 8 minutes Sedation time: 16 minutes EBL: 0 Findings: Normal colon Post-procedure Recommendations: Colonoscopy in 10 years Disposition: PACU
[2024-07-28 14:20] VITALS: BP 126/77; PULSE 73; RESP 21; TEMP 36.3; O2SAT 98
[2024-07-28 14:25] VITALS: BP 112/68; PULSE 72; RESP 18; O2SAT 99
[2024-07-28 14:31] VITALS: BP 120/77; PULSE 70; RESP 12; TEMP 36.3; O2SAT 100
[2024-07-28 14:37] VITALS: BP 127/79; PULSE 63; RESP 14; O2SAT 99
== END 2024-07-28 14:45 | disposition home or self-care (01) ==
PROVIDERS: Family Provider Family Medicine; PCP Family Medicine; Referring Provider Surgery; Visit Provider Surgery
PROC: 0DJD8ZZ Inspection of Lower Intestinal Tract, Via Natural or Artificial Opening Endoscopic (ICD-10-PCS; CPT 45378; principal; 2024-07-28 14:30)
DX: Z12.11 Encounter for screening for malignant neoplasm of colon (principal)
CPT/HCPCS: 45378; J2704

== ENCOUNTER → 2024-09-15 11:11 | Outpatient (CLI) | payer OTHER, SELFPAY ==
--- NOTE | 2024-09-15 11:12 | DI.RAD.S_ITS ---
PROCEDURE: XR CHEST 2V INDICATIONS: Ongoing chronic cough, productive TECHNIQUE: 2 views of the chest were acquired. COMPARISON: None. FINDINGS: Surgical changes and devices: None. Lungs and pleura: Lungs are clear. No pleural effusions or pneumothorax. Mediastinum: Mediastinal contours are normal. Heart size is normal. Bones and chest wall: No suspicious bony abnormalities. Soft tissues appear unremarkable. IMPRESSION: No acute cardiopulmonary abnormality is seen. Dictated by: Edmar Johnson M.D. on 09/15/2024 at 13:15 Approved by: Edmar Johnson M.D. on 09/15/2024 at 13:16
== END ==
PROVIDERS: Family Provider Family Medicine; PCP Family Medicine; Referring Provider Family Medicine; Visit Provider Family Medicine
DX: J40 Bronchitis, not specified as acute or chronic (principal)
CPT/HCPCS: 71046

== ENCOUNTER → 2025-03-29 08:46 | Outpatient (CLI) | payer OTHER, SELFPAY ==
[2025-03-29 10:33] LABS: Alanine Aminotransferase 35 IU/L (<50); Albumin 4.7 g/dL (3.5-5.0); Albumin Globulin Ratio 1.7 (1.0-2.8); Alkaline Phosphatase 52 U/L (38-126); Blood Urea Nitrogen 18 mg/dL (9-20); Calcium 9.4 mg/dL (8.4-10.2); Carbon Dioxide 29 mmol/L (22-32); Chloride 105 mmol/L (98-107); Cholesterol 231 mg/dL (140-199); Estimated Glomerular Filt Rate > 60 mL/min (>60); Globulin 2.7 g/dL (1.7-4.1); Glucose 94 mg/dL (70-99); HDL Cholesterol 53 mg/dL (40-60); HEMOLYSIS 25 (0-50); Potassium 4.6 mmol/L (3.4-5.1); Sodium 140 mmol/L (137-145); Total Protein 7.4 g/dL (6.3-8.2); Triglycerides 138 mg/dL (35-150)
== END ==
PROVIDERS: Family Provider Family Medicine; PCP Family Medicine; Referring Provider Family Medicine; Visit Provider Family Medicine
DX: Z00.00 Encounter for general adult medical examination without abnormal findings (principal); E78.5 Hyperlipidemia, unspecified
CPT/HCPCS: 36415; 80053; 80061